=== PATIENT | female | born 1985 | race Caucasian/White ===

== ENCOUNTER 2016-10-06 16:36 | Emergency (ER) | END 2016-10-06 16:45 | disposition left against medical advice (07) | LOC: ER 16:36 | DX: Z53.21 Procedure and treatment not carried out due to patient leaving prior to being seen by health care provider (principal) ==

== ENCOUNTER 2018-05-07 23:16 | Emergency (ER) | payer SELFPAY ==
[2018-05-08] MEDS ORDERED: PENICILLIN V POTASSIUM 500 MG TABLET PO ONE (00:12)
[2018-05-08] MEDS ORDERED: HYDROCODONE/ACETAMINOPHEN 5-325 MG TABLET PO ONE (00:20)
--- NOTE | 2018-05-08 00:21 | ER Document Report ---
HPI - HPI Time Seen by Provider: 05/08/18 00:07 Pain Level: 3 Notes: Patient is an otherwise healthy 32-year-old female who presents with right lower dental pain at tooth #31 and 32. She reports the pain started yesterday. She reports facial swelling but denies any fevers. - REPRODUCTIVE Reproductive: DENIES: : Past Medical History - General Information source: Patient - Social History Smoking Status: Never Smoker Family History: Reviewed & Not Pertinent Patient has suicidal ideation: No Patient has homicidal ideation: No - Medical History Medical History: Negative Renal/ Medical History: Denies: Hx Peritoneal Dialysis Surgical Hx: Negative Past Surgical History: Reports: Hx Tonsillectomy - Immunizations Immunizations up to date: Yes Vertical Provider Document - CONSTITUTIONAL Notes: PHYSICAL EXAMINATION: GENERAL: Well-appearing, well-nourished and in no acute distress. HEAD: Atraumatic, normocephalic. EYES: Pupils equal round extraocular movements intact, conjunctiva are normal. ENT: Nares patent, swelling noted to right lower gumline, black segments of teeth noted at teeth #31 and 32. No drainable abscess identified. Poor dentition noted throughout. NECK: Normal range of motion LUNGS: No respiratory distress Musculoskeletal: Normal range of motion NEUROLOGICAL: Normal speech, normal gait. PSYCH: Normal mood, normal affect. SKIN: Warm, Dry, normal turgor, no rashes or lesions noted. - INFECTION CONTROL TRAVEL OUTSIDE OF THE [place] IN LAST 30 DAYS: No Course - Re-evaluation Re-evalutation: Examination is consistent with dental infection. Patient will be placed on antibiotics and given information for [facility]. - Vital Signs Vital signs: Temp Pulse Resp BP Pulse Ox 98.5 F 89 16 126/79 H 96 05/07/18 23:44 05/07/18 23:44 05/07/18 23:44 05/07/18 23:44 05/07/18 23:44 Discharge - Discharge Clinical Impression: Dental infection Condition: Stable Disposition: HOME, SELF-CARE Additional Instructions: TOOTHACHE: Your pain is due to dental decay. The tooth must be repaired in order for you to feel better. You will, therefore, be referred to a dentist. We do not have dentists on the staff at [facility]. Severe swelling or drainage around a tooth usually means a dental abscess. This also requires evaluation and treatment by the dentist, but antibiotics may be prescribed while awaiting dental treatment. You should be rechecked immediately if you develop major swelling of the face, increasing pain, a lump in the jaw or gums, headache, difficulty swallowing, or fever. PENICILLIN V K: You have been given a prescription for Penicillin VK. Your physician has determined that this is the best antibiotic for your condition. Pen VK can be taken with meals, however more of the antibiotic gets into the bloodstream if it's taken on an empty stomach. Penicillin usually has no side effects. However, allergy to penicillins is common. If you have had an allergic reaction to any drug of the penicillin family, you should never take any other penicillin. Notify your doctor at once if you develop hives, itching, swelling, faintness, or shortness of breath. FOLLOW-UP CARE: You have been referred for follow-up care to the dentists listed below. Call the dentists office for an appointment as you were instructed or within the next two days. If you experience worsening or a significant change in your symptoms, notify the physician immediately or return to the Emergency Department at any time for re-evaluation. Please take Tylenol and/or ibuprofen for the pain. Complete all antibiotics as prescribed. You must take one tablet of penicillin twice daily. Please follow-up with the [facility], call them Monday to try to schedule an appointment. [facility] [address] Prescriptions: Penicillin V Potassium [Penicillin Vk 500 mg Tablet] 500 mg PO BID #20 tablet
[2018-05-08 01:07] VITALS: BP 123/76
== END 2018-05-08 00:55 | disposition home or self-care (01) ==
LOC: ER 23:16
DX: K02.9 Dental caries, unspecified (principal); K04.7 Periapical abscess without sinus
CPT/HCPCS: 99283